=== PATIENT | female | born 1970 | race Caucasian/White ===

== ENCOUNTER → 2021-08-03 15:54 | Outpatient (REF) | payer BC, SELFPAY ==
--- NOTE | 2021-08-03 16:02 | CA_ITS ---
Transthoracic Echocardiogram Patient (Last, First, Middle): Misty Garcia, Gender: Female Date of : 1970 Age: 51 Procedure Date: 08/03/2021 Procedure Type: Transthoracic Echocardiogram Location: [place] Height: 152.4 cm Weight: 67.13 kg BSA: 1.64 m2 Heart Rate: bpm BP: 120 / 75 mmHg Anaesthetic Technician: JUAN Referring MD: Omid Man MD Symptoms: CHEST PAIN R07.9 Study Quality: Adequate ECG Rhythm: Sinus Conclusions: - The left ventricular systolic function is normal. The calculated ejection fraction is 65% by biplane method. - No obvious valvular pathology seen on this study. Findings Left Ventricle Normal left ventricular cavity size. There is normal left ventricular wall thickness. The left ventricular systolic function is normal. The calculated ejection fraction is 65% by biplane method. There is no evidence of regional wall motion abnormalities. Diastolic function is normal for age. Right Ventricle Normal right ventricular cavity size and systolic function. Atria Both atria are normal in size. Aortic Valve The aortic valve was not well visualized. There is no aortic valve stenosis. There is no aortic valve regurgitation. Mitral Valve The mitral valve appears normal. There is no mitral valve regurgitation. There is no mitral valve stenosis. Pulmonic Valve The pulmonic valve is likely normal. Tricuspid Valve There is trace tricuspid valve regurgitation. The pulmonary artery systolic pressure is normal. Great Vessels The asc aorta and aortic arch are normal in size. Venous The inferior vena cava is normal in size and collapses greater than 50% with inspiration. Pericardium/Pleural There is no evidence of pericardial effusion. Prior Study Comparison No prior study available for comparison. Recommendations, Care & Conclusions No obvious valvular pathology seen on this study. Measurements 2D Linear Measurements IVSd: 0.72 0.6-0.9/0.6-1.0 cm LVIDd: 4.27 3.9-5.3/4.2-5.9 cm LVIDd Index: 2.60 2.4-3.2/2.2-3.1 cm/m2 LVIDs: 2.61 2.0-3.6 cm LVPWd: 0.85 0.7-1.1 cm LA Diam: 2.80 2.7-3.8/3.0-4.0 cm LAIDs Index: 1.71 1.5-2.3 cm/m2 LV Mass: 126.39 67-162/88-224 g LV Mass Index: 77.07 43-95/49-115 g/m2 LVOT Diam: 2.00 3.0+(-)1.3 cm 2D Systolic Function EF 4C: 65.50 >55% EF 2C: 63.50 >55% EF BiP: 65.30 >55% Mitral Valve MV Pk E: 0.81 MV PK A: 0.65 MV Decel Time: 215.00 E/A: 1.30 E'Lateral: 11.90 E'Medial: 8.70 E/E' Med: 9.30 E/E' Lat: 6.80 PHT: 63.00 MVA PHT: 3.49 Decel [place]: 3.76 Aortic Valve AoV Pk Curtis: 1.58 AoV Mn Curtis: 1.10 AoV VTI: 0.34 AoV Pk Grad: 10.00 Aov Mn Grad: 5.00 DOROTHEA Cont.VTI: 2.15 LVOT LVOT Pk Curtis: 1.08 LVOT Mn Curtis: 0.75 LVOT VTI: 0.23 LVOT Pk Grad: 5.00 LVOT Mn Grad: 3.00 LVOT Diam: 2.00 LVOT Area: 3.14 Diastolic Function MV Pk E: 0.81 MV Pk A: 0.65 E/A: 1.30 E'Medial: 8.70 E/E' Med: 9.30 E' Laterial: 11.90 E/E' Lat: 6.80 Right Ventricle TAPSE (mm): 23.80 TVS' Curtis: 11.20 Tricuspid Valve TR Pk Curtis: 1.75 TR Pk Grad: 12.00 RA Press: 3.00 RVSP: 15.00 Great Vessels Aorta Sinus of Valsalva: 2.80 2.0-3.[address] [place]: 2.52 1.7-3.4 cm Ao Asc: 2.80 2.1-3.4 cm Ao Arch: 2.80 Updated in Other Vendor System with Status of Final Yordy Waite MD electronically signed on 08/04/2021 1:49:13 PM with status of Final
== END ==
LOC: HO.CARD 15:54
PROVIDERS: Visit Provider Internal Medicine
DX: R07.9 Chest pain, unspecified (principal)
CPT/HCPCS: 93306